=== PATIENT | female | born 1970 | race Two or more races ===

== ENCOUNTER 2018-03-05 12:30 | Emergency (ER) | payer BC | END 2018-03-05 13:58 | disposition home or self-care (01) | LOC: E/R 12:30 | DX: M77.31 Calcaneal spur, right foot (principal) | CPT/HCPCS: 73630; 99283-25 ==

== ENCOUNTER 2019-04-05 18:56 | Emergency (ER) | payer SELFPAY, BC | END 2019-04-06 00:12 | disposition left against medical advice (07) | LOC: E/R 18:56 | DX: Z53.21 Procedure and treatment not carried out due to patient leaving prior to being seen by health care provider (principal) ==